=== PATIENT | male | born 1970 | race Two or more races ===

== ENCOUNTER 2023-07-26 20:05 | Emergency (ER) | payer MEDICAID ==
[~2023-07-26] VITALS: Ht 172.7 cm; Wt 75.2 kg
[2023-07-26 21:00] LABS: BASOPHILS % (AUTO) 1.4 % (0.0-2.0); EOSINOPHILS % (AUTO) 1.4 % (1.0-6.0); HEMATOCRIT 27.1 % (41-53); HEMOGLOBIN 9.1 g/dL (13.5-17.5); LYMPHOCYTES % (AUTO) 20.7 % (22.0-44.0); MEAN CORPUSCULAR HEMOGLOBIN 34.9 pg (26.0-34.0); MEAN CORPUSCULAR HGB CONC 33.6 G/dL (31.0-37.0); MEAN CORPUSCULAR VOLUME 104 fL (80-100); MONOCYTES # (AUTO) 0.7 K/uL (0.1-1.0); MONOCYTES % (AUTO) 7.4 % (2.0-9.0); NEUTROPHILS # (AUTO) 6.8 K/uL (1.8-7.7); NEUTROPHILS % (AUTO) 69.1 % (40.0-70.0); PLATELET COUNT (AUTO) 104 K/uL (150-450); RED BLOOD CELL COUNT(AUTO) 2.61 MIL/uL (4.50-5.90); RED CELL DISTRIBUTION WIDTH 14.6 % (11.5-14.5); WHITE BLOOD COUNT (AUTO) 9.9 K/uL (4.5-11.0)
[2023-07-26 21:09] LABS: ANION GAP 8 mmol/L (8-16); CALCIUM, TOTAL 7.9 mg/dL (8.8-10.5); CARBON DIOXIDE 26 mmol/L (22-29); CHLORIDE 103 mmol/L (98-107); CREATININE 0.42 mg/dL (0.60-1.30); GLOMERULAR FILTR. RATE CALC > 60 mL/min (>60); GLUCOSE,RANDOM 133 mg/dL (70-110); POTASSIUM 3.6 mmol/L (3.5-5.1); SODIUM SERUM 137 mmol/L (136-145); UREA NITROGEN, BLOOD 3 mg/dL (7-18)
[2023-07-26 21:12] LABS: INR 1.3 (0.9-1.1); PROTHROMBIN TIME 13.3 SEC (9.4-11.6)
[2023-07-26 21:15] LABS: ALANINE AMINOTRANSFERASE 30 U/L (12-78); ALBUMIN 2.5 g/dL (3.4-5.0); ALKALINE PHOSPHATASE 265 U/L (46-116); ASPARTATE AMINOTRANSFERASE 136 U/L (15-37); BILIRUBIN,TOTAL 1.3 mg/dL (0.1-1.0); LIPASE 78 U/L (16-77); TOTAL PROTEIN, SERUM 7.4 g/dL (6.4-8.2)
[2023-07-26 21:17] LABS: LACTIC ACID 0.9 mmol/L (0.4-2.0)
[2023-07-26 21:19] LABS: ALCOHOL, BLOOD (SERUM) 377 mg/dL (0-10)
[2023-07-26 21:20] LABS: TROPONIN I-HIGH SENSITIVITY 82 ng/L (<76)
[2023-07-26] MEDS ORDERED: EPINEPHrine 1:1,000 [1 MG/ML] VIAL SQ ONE (22:00)
[2023-07-26] MEDS ORDERED: LIDOCAINE 1%/EPI 1:200,000/PF 30 ML VIAL ONE (22:45)
[2023-07-26 23:56] LABS: TROPONIN I-HIGH SENSITIVITY 78 ng/L (<76)
[2023-07-27 03:04] LABS: COVID AG,FIA SOURCE NASAL SWAB
[2023-07-27 03:08] LABS: SARS-COV2 (COVID) ANTIGEN,FIA Negative (Negative)
[2023-07-27 03:56] VITALS: BP 129/68; PULSE 92; RESP 15
[2023-07-27] MEDS ORDERED: CefTRIAXone 1 GM/DEXTROSE 50 ML IV ONE (04:15)
== END 2023-07-27 04:55 | disposition short-term general hospital (02) ==
LOC: EMS 20:07
DX: T14.90XA Injury, unspecified, initial encounter (principal); K70.30 Alcoholic cirrhosis of liver without ascites; F10.129 Alcohol abuse with intoxication, unspecified; R77.8 Other specified abnormalities of plasma proteins; K08.89 Other specified disorders of teeth and supporting structures; Z20.822 Contact with and (suspected) exposure to COVID-19; W19.XXXA Unspecified fall, initial encounter; Y93.89 Activity, other specified; Y92.89 Other specified places as the place of occurrence of the external cause; Y99.8 Other external cause status
CPT/HCPCS: 99291; 70450; 87426; 80053; 83605; 83690; 84484; 85025; 85610; 85730; 86900; 86901; 71045; 70486; 72125; 93005; 96365; 36415; G0480; J0171; J3490; J0696